=== PATIENT | female | born 1980 | race Caucasian/White ===

== ENCOUNTER 2018-02-14 08:18 | Emergency (ER) | payer OTHER ==
[2018-02-14] MEDS ORDERED: LORazepam 2 MG/ML VIAL ONE (08:34)
[2018-02-14] MEDS ORDERED: NA CHLORIDE 0.9% 1,000 ML ONE (08:34)
[2018-02-14] MEDS ORDERED: cloNIDine HCl 0.1 MG TAB ONE (08:39)
[2018-02-14 09:07] LABS: Absolute Monocytes 0.5 K/uL (0.1-1.3); Absolute Neutrophil 3.2 K/uL (1.8-8.0); Hematocrit 32.6 % (36.0-45.0); Lymphocytes % 20.6 % (15.3-44.8); MCH 26.7 pg (27.0-35.0); MCV 82.9 fL (80-100); MPV 8.4 fL (7.6-11.3); Monocytes % 10.4 % (3.3-12.3); RBC Red Blood Cell Count 3.93 M/uL (3.86-4.86)
[2018-02-14 09:20] LABS: Protime INR 1.05
[2018-02-14 09:41] LABS: Albumin 3.6 g/dL (3.4-5.0); Bilirubin Direct 0.1 mg/dL (0-0.2); Bilirubin Total 0.4 mg/dL (0.2-1.0); Magnesium 1.8 mg/dL (1.8-2.4); Protein, Total 7.2 g/dL (6.4-8.2)
[2018-02-14 09:42] LABS: Potassium 2.6 mmol/L (3.5-5.1)
[2018-02-14] MEDS ORDERED: POTASSIUM CL SA 10 MEQ TAB PO ONE (10:09)
--- NOTE | 2018-02-14 10:30 | EDPHYS ---
Physician Documentation [facility] Name: Shirley Corral Age: 37 yrs Sex: Female : 1980 Arrival Date: 02/14/2018 Time: 08:19 Bed 16 Private MD: ED Physician Kentrell Iyer HPI: 02/14 08:21 This 37 yrs old Female presents to ER via Unassigned with complaints of High kav Blood Pressure. 08:21 The patient has elevated blood pressure and discovered this at home. Onset: The kav symptoms/episode began/occurred acutely, 2 day(s) ago. Modifying factors: The symptoms are aggravated by Non-compliance with f/u with PCP after diagnosis of HTN and Adrenal Mass diagnosed approximately 1 1/2 months ago. Also, reports smoking methamphetamine approximately 2 days ago.. Associated signs and symptoms: Pertinent negatives: chest pain, dizziness, dyspnea, headache, lightheadedness, nausea, visual changes, vomiting, weakness. Severity of symptoms: At its worst the blood pressure was severe, just prior to arrival. The patient has experienced a previous episode, approximately 2 months ago, and the symptoms today are exactly the same. The patient has not recently seen a physician. Non-compliance with physician f/u for HTN and Adrenal mass diagnosed approximately 1 1/2 months ago. Smoke crystal methamphetamine 2 days ago.. 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 - Social history:: Smoking status: Patient uses tobacco products, Patient uses IV drugs. - Ebola Screening: : Patient negative for fever greater than or equal to 101.5 degrees Fahrenheit, and additional compatible Ebola Virus Disease symptoms Patient denies exposure to infectious person Patient denies travel to an Ebola-affected area in the 21 days before illness onset. - Family history:: not pertinent. - Hospitalizations: : No recent hospitalization is reported. - History obtained from: EMS. ROS: 08:28 Constitutional: Negative for fever, chills, and weight loss, Eyes: Negative for injury, kav pain, redness, and discharge, ENT: Negative for injury, pain, and discharge, Neck: Negative for injury, pain, and swelling, Cardiovascular: hypertension 190/115 on arrival Respiratory: Negative for shortness of breath, cough, wheezing, and pleuritic chest pain, Abdomen/GI: Negative for abdominal pain, nausea, vomiting, diarrhea, and constipation, Back: Negative for injury and pain, : Negative for injury, bleeding, discharge, and swelling, MS/Extremity: Negative for injury and deformity, Skin: Negative for injury, rash, and discoloration, Neuro: Negative for headache, weakness, numbness, tingling, and seizure, Allergy/Immunology: Negative for hives, rash, and allergies, Endocrine: Negative for neck swelling, polydipsia, polyuria, polyphagia, and marked weight changes, Hematologic/Lymphatic: Negative for swollen nodes, abnormal bleeding, and unusual bruising. 08:28 Psych: Positive for anxiety. Exam: 08:28 Constitutional: This is a well developed, well nourished patient who is awake, alert, kav and in no acute distress. Head/Face: Normocephalic, atraumatic. Eyes: Pupils equal round and reactive to light, extra-ocular motions intact. Lids and lashes normal. Conjunctiva and sclera are non-icteric and not injected. Cornea within normal limits. Periorbital areas with no swelling, redness, or edema. ENT: Nares patent. No nasal discharge, no septal abnormalities noted. Tympanic membranes are normal and external auditory canals are clear. Oropharynx with no redness, swelling, or masses, exudates, or evidence of obstruction, uvula midline. Mucous membranes moist. Neck: Trachea midline, no thyromegaly or masses palpated, and no cervical lymphadenopathy. Supple, full range of motion without nuchal rigidity, or vertebral point tenderness. No Meningismus. Chest/axilla: Normal chest wall appearance and motion. Nontender with no deformity. No lesions are appreciated. Respiratory: Lungs have equal breath sounds bilaterally, clear to auscultation and percussion. No rales, rhonchi or wheezes noted. No increased work of breathing, no retractions or nasal flaring. Abdomen/GI: Soft, non-tender, with normal bowel sounds. No distension or tympany. No guarding or rebound. No evidence of tenderness throughout. Back: No spinal tenderness. No costovertebral tenderness. Full range of motion. Skin: Warm, dry with normal turgor. Normal color with no rashes, no lesions, and no evidence of cellulitis. MS/ Extremity: Pulses equal, no cyanosis. Neurovascular intact. Full, normal range of motion. Neuro: Awake and alert, GCS 15, oriented to person, place, time, and situation. Cranial nerves II-XII grossly intact. Motor strength 5/5 in all extremities. Sensory grossly intact. Cerebellar exam normal. Normal gait. 08:28 Cardiovascular: Exam negative for acute changes. 08:28 Neuro: Exam negative for acute changes. Vital Signs: 08:23 BP 190 / 115; Pulse 72; Resp 18; Temp 98.1(TE); Pulse Ox 99% ; Weight 56.7 kg; Height 5 hj ft. 5 in. (165.10 cm); Pain 0/10; 09:11 BP 197 / 113; Pulse 65; Resp 18; Pulse Ox 100% on R/A; 09:27 BP 204 / 112; Pulse 66; Resp 18; Pulse Ox 100% on R/A; 09:40 BP 179 / 104; Pulse 68; Resp 18; Pulse Ox 100% on R/A; hj 10:19 BP 159 / 98; Pulse 68; Resp 18; Pulse Ox 99% on R/A; 08:23 Body Mass Index 20.80 (56.70 kg, 165.10 cm) MDM: 08:26 Patient medically screened. [facility] 08:28 Data reviewed: vital signs, nurses notes. 02/14 08:28 Order name: Basic Metabolic Panel; Complete Time: 10:02 02/14 10:02 Interpretation: Normal except: K 2.6; CO2 33; GFR 70. 02/14 08:28 Order name: CBC with Diff; Complete Time: 09:21 02/14 09:21 Interpretation: Normal except: HGB 10.5; HCT 32.6; MCH 26.7; BASO% 2.0. 02/14 08:28 Order name: LFT's; Complete Time: 10:02 02/14 10:02 Interpretation: Normal except: GLOB 3.6; A/G 1.0. 02/14 08:28 Order name: Magnesium; Complete Time: 10:02 02/14 10:02 Interpretation: Within normal limits. 02/14 08:28 Order name: PT-INR; Complete Time: 10:02 02/14 10:02 Interpretation: Within normal limits. 02/14 08:28 Order name: Ptt, Activated; Complete Time: 10:02 02/14 08:28 Order name: Cardiac monitoring; Complete Time: 08:29 02/14 08:28 Order name: EKG - Nurse/Tech; Complete Time: 08:40 02/14 08:28 Order name: IV Saline Lock; Complete Time: 08:47 02/14 08:28 Order name: Labs collected and sent; Complete Time: 08:48 02/14 08:28 Order name: O2 Per Protocol; Complete Time: 08:29 02/14 08:28 Order name: O2 Sat Monitoring; Complete Time: 08:29 Administered Medications: 08:36 Drug: NS 0.9% 1000 ml Route: IV; Rate: 1 bolus; Site: right antecubital; hj 10:51 Follow up: IV Status: Completed infusion hj 08:36 Not Given (not available): hydrALAZINE 10 mg IV at bolus once hj 08:36 Drug: Ativan 1 mg Route: IVP; Site: right antecubital; hj 10:11 Follow up: Response: No adverse reaction hj 08:36 Drug: cloNIDine 0.2 mg Route: PO; hj 10:10 Follow up: Response: No adverse reaction hj 10:04 Drug: Potassium Chloride 40 mEq Route: PO; hj 10:10 Follow up: Response: No adverse reaction hj Disposition: 02/15 06:33 Co-signature as Attending Physician, Kentrell Iyer MD I agree with the assessment and reinier plan of care. Disposition: 02/14/18 10:29 Discharged to Home. Impression: Essential (primary) hypertension, Other stimulant abuse with stimulant-induced anxiety disorder, Adverse effects, not elsewhere classified, Anxiety disorder, unspecified, Dehydration, Hypokalemia. - Condition is Stable. - Discharge Instructions: Stimulant Use Disorder-Amphetamines, Dehydration, Adult, Hypertension, [id number], Stimulant Use Disorder-Methamphetamines, How to Take Your Blood Pressure, [id number], Generalized Anxiety Disorder, Hypokalemia, DASH Eating Plan, Rehydration, Adult. - Prescriptions for Lisinopril 10 mg Oral Tablet - take 1 tablet by ORAL route once daily; 20 tablet. - Medication Reconciliation Form, Thank You Letter, Antibiotic Education, Prescription Opioid Use form. - Follow up: [facility]; When: 5 - 6 days; Reason: Recheck today's complaints, Continuance of care. - Problem is new. - Symptoms have improved. - Notes: ensure adequate hydration avoid use of methamphetamines follow - up with pcp for hypertension and adrenal mass Signatures: Dispatcher [employer] EDCT Kentrell Iyer MD MD cha Vern, Katherine, SPECIALTY DEVELOPMENT CONSULTANT SPECIALTY DEVELOPMENT CONSULTANT Marvin Castrejon RN RN hj Corrections: (The following items were deleted from the chart) 02/14 10:56 10:29 02/14/2018 10:29 Discharged to Home. Impression: Essential (primary) hj hypertension; Other stimulant abuse with stimulant-induced anxiety disorder; Adverse effects, not elsewhere classified; Anxiety disorder, unspecified; Dehydration; Hypokalemia. Condition is Stable. Discharge Instructions: Stimulant Use Disorder-Amphetamines, Hypertension, Oeiy-fw-Oiuc, Stimulant Use Disorder-Methamphetamines, How to Take Your Blood Pressure, [id number]-[id number], Generalized Anxiety Disorder, DASH Eating Plan, Dehydration, Adult, Rehydration, Adult, Hypokalemia. Forms are Medication Reconciliation Form, Thank You Letter, Antibiotic Education, Prescription Opioid Use. Follow up: [facility]; When: 5 - 6 days; Reason: Recheck today's complaints, Continuance of care. Problem is new. Symptoms have improved. kav
--- NOTE | 2018-02-14 10:30 | ER ---
Nurse's Notes [facility] Name: Shirley Corral Age: 37 yrs Sex: Female : 1980 Arrival Date: 02/14/2018 Time: 08:19 Bed 16 Private MD: Diagnosis: Essential (primary) hypertension;Other stimulant abuse with stimulant-induced anxiety disorder;Adverse effects, not elsewhere classified;Anxiety disorder, unspecified;Dehydration;Hypokalemia Presentation: 02/14 08:19 Presenting complaint: EMS states: was called for pt complaining of high blood pressure hj and blurry vision, SBP RA- 180; SBP LA- 160/114; BP- 203/114, HR- 86; temp- 97.6; BGL- 80; recently dx witrh adrenal tumor;. Transition of care: patient was received from another setting of care (rehabilitation facility). Onset of symptoms was February 14, 2018. Risk Assessment: Do you want to hurt yourself or someone else? Patient reports no desire to harm self or others. Initial Sepsis Screen: Does the patient meet any 2 criteria? No. Patient's initial sepsis screen is negative. Does the patient have a suspected source of infection? No. Patient's initial sepsis screen is negative. Care prior to arrival: None. 08:19 Method Of Arrival: EMS: [facility] 08:19 Acuity: AUDRA 3 hj Triage Assessment: 08:23 General: Appears in no apparent distress. uncomfortable, slender, Behavior is calm, hj cooperative, appropriate for age. Pain: Denies pain. 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 - Social history:: Smoking status: Patient uses tobacco products, Patient uses IV drugs. - Ebola Screening: : Patient negative for fever greater than or equal to 101.5 degrees Fahrenheit, and additional compatible Ebola Virus Disease symptoms Patient denies exposure to infectious person Patient denies travel to an Ebola-affected area in the 21 days before illness onset. - Family history:: not pertinent. - Hospitalizations: : No recent hospitalization is reported. - History obtained from: EMS. Screenin:23 Abuse screen: Denies threats or abuse. Denies injuries from another. Nutritional hj screening: No deficits noted. Tuberculosis screening: No symptoms or risk factors identified. Fall Risk None identified. Assessment: 08:22 General: Appears in no apparent distress. uncomfortable, Behavior is calm, cooperative, hj appropriate for age. Pain: Denies pain. Neuro: Level of Consciousness is awake, alert, obeys commands, Oriented to person, place, time, situation, Appropriate for age. Cardiovascular: Capillary refill < 3 seconds Patient's skin is warm and dry. Respiratory: Airway is patent Respiratory effort is even, unlabored, Respiratory pattern is regular, symmetrical. GI: No signs and/or symptoms were reported involving the gastrointestinal system. : No signs and/or symptoms were reported regarding the genitourinary system. EENT: Reports blurred vision. Derm: No signs and/or symptoms reported regarding the dermatologic system. Musculoskeletal: No signs and/or symptoms reported regarding the musculoskeletal system. 09:42 Reassessment: lab alert- K- 2.6, provider informed;. hj Vital Signs: 08:23 BP 190 / 115; Pulse 72; Resp 18; Temp 98.1(TE); Pulse Ox 99% ; Weight 56.7 kg; Height 5 hj ft. 5 in. (165.10 cm); Pain 0/10; 09:11 BP 197 / 113; Pulse 65; Resp 18; Pulse Ox 100% on R/A; hj 09:27 BP 204 / 112; Pulse 66; Resp 18; Pulse Ox 100% on R/A; hj 09:40 BP 179 / 104; Pulse 68; Resp 18; Pulse Ox 100% on R/A; hj 10:19 BP 159 / 98; Pulse 68; Resp 18; Pulse Ox 99% on R/A; hj 08:23 Body Mass Index 20.80 (56.70 kg, 165.10 cm) hj ED Course: 08:19 Patient arrived in ED. hj 08:21 [facility] Armendariz FNP [facility] kav 08:21 Kentrell Iyer MD is Attending Physician. kav 08:21 Triage completed. hj 08:24 Arm band placed on left wrist. hj 08:24 Patient has correct armband on for positive identification. Placed in gown. Bed in low hj position. Call light in reach. Side rails up X 1. 08:26 Marvin Li, RN is Primary Nurse. hj 08:50 EKG done, by director of instructional technology. reviewed by Joselyn ORDOÑEZ. at1 08:55 Initial lab(s) drawn, by nj, sent to lab. Inserted saline lock: 22 gauge in right mh5 antecubital area, using aseptic technique. Blood collected. 08:56 IV discontinued, Pressure dressing applied. mh5 08:57 Basic Metabolic Panel Sent. mh5 08:57 CBC with Diff Sent. mh5 08:57 LFT's Sent. mh5 08:57 Magnesium Sent. mh5 08:57 PT-INR Sent. mh5 08:57 Ptt, Activated Sent. mh5 09:02 Inserted saline lock: 22 gauge in left antecubital area, using aseptic technique. hj 10:28 Wellington Taylor MD is Referral Physician. kav 10:49 No provider procedures requiring assistance completed. hj 10:51 IV discontinued, Pressure dressing applied. hj Administered Medications: 08:36 Drug: NS 0.9% 1000 ml Route: IV; Rate: 1 bolus; Site: right antecubital; hj 10:51 Follow up: IV Status: Completed infusion hj 08:36 Not Given (not available): hydrALAZINE 10 mg IV at bolus once hj 08:36 Drug: Ativan 1 mg Route: IVP; Site: right antecubital; hj 10:11 Follow up: Response: No adverse reaction hj 08:36 Drug: cloNIDine 0.2 mg Route: PO; hj 10:10 Follow up: Response: No adverse reaction hj 10:04 Drug: Potassium Chloride 40 mEq Route: PO; hj 10:10 Follow up: Response: No adverse reaction hj Outcome: 10:29 Discharge ordered by . kav 10:49 Discharged to home via [facility]; hj 10:49 Condition: stable 10:49 Discharge instructions given to patient, Instructed on discharge instructions, follow up and referral plans. medication usage, Demonstrated understanding of instructions, follow-up care, medications, Prescriptions given X 1. 10:56 Patient left the ED. hj Signatures: Joselyn Armendariz FNP FNP kaEvita fairchild, sap integration architect EKG Tat1 Marvin Li RN RN Ashley Paredes mh5 Corrections: (The following items were deleted from the chart) 08:26 08:19 Presenting complaint: EMS states: was called for pt complaining of high blood hj pressure and blurry vision, SBP RA- 180; SBP LA- 160/114; BP- 203/114, HR- 86; temp- 97.6; hj
--- NOTE | 2018-02-14 16:54 | EKG ---
Test Date: 2018-02-14 Test Time: 08:39:56 Knotter Hand: ZEYNEP MEASUREMENT RESULTS: Intervals: Rate: 73 CA: 132 QRSD: 86 QT: 444 QTc: [address] [place]: P: 48 CA: 132 QRS: 41 T: -46 INTERPRETIVE STATEMENTS: Normal sinus rhythm ST & T wave abnormality, consider lateral ischemia Prolonged QT Abnormal ECG No previous ECG available for comparison Electronically Signed On 02-14-18 16:53:30 CDT by Gio Gant
== END 2018-02-14 10:56 | disposition home or self-care (01) ==
LOC: ER 08:18
DX: I10 Essential (primary) hypertension (principal); F15.180 Other stimulant abuse with stimulant-induced anxiety disorder; F41.9 Anxiety disorder, unspecified; E86.0 Dehydration; E87.6 Hypokalemia; F17.200 Nicotine dependence, unspecified, uncomplicated; T78.8XXA Other adverse effects, not elsewhere classified, initial encounter
CPT/HCPCS: 36415; 80048; 80076; 83735; 85025; 85610; 85730; 93005; 96361; 96374; 99284; J7030

== ENCOUNTER 2018-02-16 19:57 | Emergency (ER) | payer OTHER ==
[2018-02-16 21:03] LABS: Absolute Lymphocytes (CBC) 1.2 K/uL (0.7-4.9); Absolute Monocytes 0.5 K/uL (0.1-1.3); Absolute Neutrophil 4.2 K/uL (1.8-8.0); Basophils % 1.9 % (0-1.3); Eosinophils % 1.1 % (0-4.4); Hematocrit 29.8 % (36.0-45.0); Lymphocytes % 19.1 % (15.3-44.8); MCH 27.6 pg (27.0-35.0); MCV 82.1 fL (80-100); MPV 8.4 fL (7.6-11.3); Monocytes % 8.3 % (3.3-12.3); RBC Red Blood Cell Count 3.63 M/uL (3.86-4.86)
[2018-02-16 21:23] LABS: Urine Blood 2+ (NEG); Urine Glucose TRACE (NEG); Urine Protein 1+ (NEG); Urine Specific Gravity 1.015 (1.005-1.030)
[2018-02-16 21:35] LABS: ALT/SGPT 18 U/L (12-78); AST/SGOT 22 U/L (15-37); Albumin 3.6 g/dL (3.4-5.0); Alkaline Phosphatase 66 U/L (45-117); BUN Blood Urea Nitrogen 16 mg/dL (7-18); Bicarbonate 32 mmol/L (21-32); Bilirubin Direct < 0.1 mg/dL (0-0.2); Bilirubin Total 0.2 mg/dL (0.2-1.0); Glucose Level 82 mg/dL (74-106); Magnesium 1.6 mg/dL (1.8-2.4); Protein, Total 7.3 g/dL (6.4-8.2); Sodium Level 141 mmol/L (136-145)
[2018-02-16 21:40] LABS: Potassium 2.4 mmol/L (3.5-5.1)
[2018-02-16] MEDS ORDERED: Magnesium Sulfate 2gm IVPB 2 G/50 ML BAG IV ONE (22:10)
[2018-02-16] MEDS ORDERED: POTASSIUM 25 MEQ EFFERV TAB ONE (22:10)
--- NOTE | 2018-02-16 23:24 | ER ---
Nurse's Notes [facility] Name: Shirley Corral Age: 37 yrs Sex: Female : 1980 Arrival Date: 02/16/2018 Time: 20:03 Bed 15 Private MD: Diagnosis: Elevated Blood Pressure;Hypokalemia Presentation: 02/16 19:55 Presenting complaint: Patient states: that she was here on the 26 for hypertension and fc given Lisinopril which she just started today. Her bp continued to just climb higher today. EMS bp 195/125 with heart rate of 88 and sats of 100%. Transition of care: lives at [facility]. Onset of symptoms was February 16, 2018. Risk Assessment: Do you want to hurt yourself or someone else? Patient reports no desire to harm self or others. Initial Sepsis Screen: Does the patient meet any 2 criteria? No. Patient's initial sepsis screen is negative. Does the patient have a suspected source of infection? No. Patient's initial sepsis screen is negative. Care prior to arrival: None. 19:55 Method Of Arrival: EMS: [facility] 19:55 Acuity: AUDRA 3 Triage Assessment: 20:00 General: Appears comfortable, slender, Behavior is calm, cooperative, appropriate for fc age. 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 - Social history:: Smoking status: Patient uses tobacco products, smokes one-half pack cigarettes per day, Patient uses street drugs, Methamphetamine (Meth) stopped last . - Ebola Screening: : Patient negative for fever greater than or equal to 101.5 degrees Fahrenheit, and additional compatible Ebola Virus Disease symptoms Patient denies exposure to infectious person Patient denies travel to an Ebola-affected area in the 21 days before illness onset. - Family history:: not pertinent. - Hospitalizations: : No recent hospitalization is reported. Screenin:08 Abuse screen: Denies threats or abuse. Nutritional screening: No deficits noted. fc Tuberculosis screening: No symptoms or risk factors identified. Fall Risk None identified. Assessment: 20:07 General: RECD 37YO WF VIA EMS FROM REHAB FACILITY FOR ASYMPTOMATIC HTN. PT STARTED bp ANTI-HYPERTENSIVE MEDICINE, LISINOPRIL 10MG, TODAY. Pain: Denies pain. Cardiovascular: Rhythm is sinus rhythm. 21:01 Reassessment: LABWORK IN PROCESS, PT REMAINS HYPERTENSIVE ON ACTIVE DIRECTORY SYSTEMS ADMINISTRATOR. bp 22:16 Reassessment: MAG SULFATE INFUSING. PT RESTING QUIETLY, REMAINS ASYMPTOMATIC. bp 23:25 Reassessment: No changes from previously documented assessment. Patient and/or family fc updated on plan of care and expected duration. Pain level reassessed. Patient is alert, oriented x 3, equal unlabored respirations, skin warm/dry/pink. Pt is not having any problems or discomfort. She is ready to be discharged. Vital Signs: 19:55 BP 204 / 116; Pulse 74; Resp 18; Temp 98.0(O); Pulse Ox 100% ; Weight 56.7 kg (R); fc Height 5 ft. 5 in. (165.10 cm); Pain 0/10; 20:50 BP 191 / 118; Pulse 74; Resp 16; Pulse Ox 100% ; bp 22:04 BP 178 / 111; Pulse 67; Resp 16; Pulse Ox 100% ; bp 23:32 BP 185 / 102; Pulse 72; Resp 18; Temp 98.2(O); Pulse Ox 100% on R/A; Pain 0/10; fc 19:55 Body Mass Index 20.80 (56.70 kg, 165.10 cm) ED Course: 19:55 Arm band placed on Patient placed in an exam room, on a stretcher. fc 20:03 Patient arrived in ED. fc 20:03 Brijesh Burnham, RN is Primary Nurse. bp 20:06 Triage completed. fc 20:08 Patient has correct armband on for positive identification. Bed in low position. Call fc light in reach. 20:08 No provider procedures requiring assistance completed. fc 20:11 Lloyd Soria MD is Attending Physician. wa 21:00 Inserted saline lock: 22 gauge in right forearm, using aseptic technique. Blood bp collected. 23:22 Carol Ann Godfrey MD is Referral Physician. wa 23:34 IV discontinued, intact, bleeding controlled, No redness/swelling at site. Pressure fc dressing applied, per Brijesh Rn. Administered Medications: 22:13 Drug: Magnesium Sulfate 2 grams Route: IVPB; Infused Over: 2 hrs; Site: right forearm; bp 23:30 Follow up: Response: No adverse reaction; No change in condition; IV Status: Completed fc infusion 22:13 Drug: Potassium Effervescent Tablet 50 mEq Route: PO; bp 22:17 Follow up: Response: No adverse reaction bp 23:35 Follow up: Response: No adverse reaction; No change in condition fc Outcome: 23:23 Discharge ordered by . deshawn 23:33 Discharged to home ambulatory. 23:33 Condition: good 23:33 Discharge instructions given to patient, Instructed on discharge instructions, follow up and referral plans. medication usage, Demonstrated understanding of instructions, follow-up care, medications, Prescriptions given X 3. 23:35 Patient left the ED. fc Signatures: Randee Woodard RN RN fc Lloyd Soria MD MD wa Peltier, Brian, RN RN bp Corrections: (The following items were deleted from the chart) 20:07 19:55 Transition of care: patient was not received from another setting of care. fc fc
--- NOTE | 2018-02-16 23:24 | EDPHYS ---
Physician Documentation [facility] Name: Shirley Corral Age: 37 yrs Sex: Female : 1980 Arrival Date: 02/16/2018 Time: 20:03 Bed 15 Private MD: ED Physician Lloyd Soria HPI: 02/16 21:52 This 37 yrs old Female presents to ER via EMS with complaints of hypertension.wa 21:52 c/o elevated BP. took first dose of lisinopril today but states BP actually went u wa instead of down. In rehab for meth addiction. facility advised her to come seek care. Denies any complaints. specifically, answers negative to MARTINEZ, dizziness, SOB, CP, blood in UA. states recently dx'd with adrenal tumor and told may have to do with BP elevation. also has low K. . Onset: The symptoms/episode began/occurred today. Severity of symptoms: At their worst the symptoms were moderate in the emergency department the symptoms are unchanged Pain is currently a 0 / 10. The patient has experienced similar episodes in the past, several times. The patient has not recently seen a physician. as noted above. 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 - Social history:: Smoking status: Patient uses tobacco products, smokes one-half pack cigarettes per day, Patient uses street drugs, Methamphetamine (Meth) stopped last . - Ebola Screening: : Patient negative for fever greater than or equal to 101.5 degrees Fahrenheit, and additional compatible Ebola Virus Disease symptoms Patient denies exposure to infectious person Patient denies travel to an Ebola-affected area in the 21 days before illness onset. - Family history:: not pertinent. - Hospitalizations: : No recent hospitalization is reported. ROS: 21:55 Constitutional: Negative for fever, chills, and weight loss, Eyes: Negative for injury, wa pain, redness, and discharge, ENT: Negative for injury, pain, and discharge, Neck: Negative for injury, pain, and swelling, Cardiovascular: Negative for chest pain, palpitations, and edema, Respiratory: Negative for shortness of breath, cough, wheezing, and pleuritic chest pain, Abdomen/GI: Negative for abdominal pain, nausea, vomiting, diarrhea, and constipation, Back: Negative for injury and pain, : Negative for injury, bleeding, discharge, and swelling, MS/Extremity: Negative for injury and deformity, Skin: Negative for injury, rash, and discoloration, Neuro: Negative for headache, weakness, numbness, tingling, and seizure, Psych: Negative for depression, anxiety, suicide ideation, homicidal ideation, and hallucinations. 21:55 All other systems are negative. Exam: 21:56 Constitutional: This is a well developed, well nourished patient who is awake, alert, wa and in no acute distress. Head/Face: Normocephalic, atraumatic. Eyes: Pupils equal round and reactive to light, extra-ocular motions intact. Lids and lashes normal. Conjunctiva and sclera are non-icteric and not injected. Cornea within normal limits. Periorbital areas with no swelling, redness, or edema. ENT: Nares patent. No nasal discharge, no septal abnormalities noted. Tympanic membranes are normal and external auditory canals are clear. Oropharynx with no redness, swelling, or masses, exudates, or evidence of obstruction, uvula midline. Mucous membranes moist. Neck: Trachea midline, no thyromegaly or masses palpated, and no cervical lymphadenopathy. Supple, full range of motion without nuchal rigidity, or vertebral point tenderness. No Meningismus. Chest/axilla: Normal chest wall appearance and motion. Nontender with no deformity. No lesions are appreciated. Cardiovascular: Regular rate and rhythm with a normal S1 and S2. No gallops, murmurs, or rubs. Normal PMI, no JVD. No pulse deficits. Respiratory: Lungs have equal breath sounds bilaterally, clear to auscultation and percussion. No rales, rhonchi or wheezes noted. No increased work of breathing, no retractions or nasal flaring. Abdomen/GI: Soft, non-tender, with normal bowel sounds. No distension or tympany. No guarding or rebound. No evidence of tenderness throughout. Back: No spinal tenderness. No costovertebral tenderness. Full range of motion. Skin: Warm, dry with normal turgor. Normal color with no rashes, no lesions, and no evidence of cellulitis. MS/ Extremity: Pulses equal, no cyanosis. Neurovascular intact. Full, normal range of motion. Neuro: Awake and alert, GCS 15, oriented to person, place, time, and situation. Cranial nerves II-XII grossly intact. Motor strength 5/5 in all extremities. Sensory grossly intact. Cerebellar exam normal. Normal gait. Psych: Awake, alert, with orientation to person, place and time. Behavior, mood, and affect are within normal limits. Vital Signs: 19:55 BP 204 / 116; Pulse 74; Resp 18; Temp 98.0(O); Pulse Ox 100% ; Weight 56.7 kg (R); fc Height 5 ft. 5 in. (165.10 cm); Pain 0/10; 20:50 BP 191 / 118; Pulse 74; Resp 16; Pulse Ox 100% ; bp 22:04 BP 178 / 111; Pulse 67; Resp 16; Pulse Ox 100% ; bp 23:32 BP 185 / 102; Pulse 72; Resp 18; Temp 98.2(O); Pulse Ox 100% on R/A; Pain 0/10; fc 19:55 Body Mass Index 20.80 (56.70 kg, 165.10 cm) MDM: 20:11 Patient medically screened. pa 21:56 Differential Diagnosis adrenal tumor. possible related to HTN. will check labs to eval wa K. will not treat BP aggressively at this time. may add another BP med for support. may need to be on KCL. . Data reviewed: vital signs, nurses notes, lab test result(s). Test interpretation: by ED physician or midlevel provider: labs noted for low K at 2.4. also hypomagnesemia. 02/16 20:37 Order name: Magnesium; Complete Time: 21:50 pa 02/16 20:37 Order name: Basic Metabolic Panel; Complete Time: 21:50 pa 02/16 20:37 Order name: CBC with Diff; Complete Time: 21:51 pa 02/16 20:37 Order name: LFT's; Complete Time: 21:51 pa 02/16 21:02 Order name: Urine Dipstick--Ancillary (enter results); Complete Time: 21:50 02/16 21:02 Order name: Urine --Ancillary (enter results); Complete Time: 21:50 02/16 20:37 Order name: Urine Test (obtain specimen); Complete Time: 21:12 pa 02/16 20:37 Order name: IV Saline Lock; Complete Time: 21:12 pa 02/16 20:37 Order name: Labs collected and sent; Complete Time: 21:12 pa 02/16 20:37 Order name: Urine Dipstick-Ancillary (obtain specimen); Complete Time: 21:13 pa Administered Medications: 22:13 Drug: Magnesium Sulfate 2 grams Route: IVPB; Infused Over: 2 hrs; Site: right forearm; bp 23:30 Follow up: Response: No adverse reaction; No change in condition; IV Status: Completed fc infusion 22:13 Drug: Potassium Effervescent Tablet 50 mEq Route: PO; bp 22:17 Follow up: Response: No adverse reaction bp 23:35 Follow up: Response: No adverse reaction; No change in condition fc Disposition: 02/16/18 23:23 Discharged to Home. Impression: Elevated Blood Pressure, Hypokalemia. - Condition is Stable. - Discharge Instructions: Hypertension. - Prescriptions for amlodipine 10 mg Oral tablet - take 1 tablet by ORAL route once daily; 90 tablet. Lisinopril 10 mg Oral Tablet - take 1 tablet by ORAL route once daily; 90 tablet. Potassium Chloride 20 meq Oral Packet - take 1 packet by ORAL route once daily 1 packet in 6 (six) ounces of water or juice; Take after meal; 30 packet. - Medication Reconciliation Form, Thank You Letter, Antibiotic Education, Prescription Opioid Use form. - Follow up: Carol Ann Godfrey MD; When: 2 - 3 days; Reason: Recheck today's complaints. - Problem is new. - Symptoms have improved. - Notes: take your blood pressure medicines as prescribed. take the potassium as prescribed. follow up with your doctors for the adrenal gland tumor as it may be related to your blood pressure and low potassium Signatures: Dispatcher [employer] EDMS Randee Woodard RN RN fc Lloyd Soria MD MD wa Peltier, Brian, RN RN bp Corrections: (The following items were deleted from the chart) 23:35 23:23 02/16/2018 23:23 Discharged to Home. Impression: Elevated Blood Pressure; fc Hypokalemia. Condition is Stable. Forms are Medication Reconciliation Form, Thank You Letter, Antibiotic Education, Prescription Opioid Use. Follow up: A Epifanio; When: 2 - 3 days; Reason: Recheck today's complaints. Problem is new. Symptoms have improved. deshawn
== END 2018-02-16 23:35 | disposition home or self-care (01) ==
LOC: ER 19:57
DX: I10 Essential (primary) hypertension (principal); E87.6 Hypokalemia; F17.210 Nicotine dependence, cigarettes, uncomplicated
CPT/HCPCS: 36415; 80048; 80076; 81003; 81025; 83735; 85025; 96365; 99284; J3475

== ENCOUNTER 2018-02-17 15:09 | Emergency (ER) | payer OTHER ==
--- NOTE | 2018-02-17 16:30 | ER ---
Nurse's Notes [facility] Name: Shirley Corral Age: 37 yrs Sex: Female : 1980 Arrival Date: 02/17/2018 Time: 15:11 Bed 15 Private MD: Out, [facility] Diagnosis: Contusion of right foot;Sprain of ankle Presentation: 02/17 15:13 Presenting complaint: Patient states: "I hurt my foot on Monday. I stepped flat down aj1 and I heard a pop, and since then the pain is worse and its getting all purple and blue and it feels tingly and numb. Transition of care: patient was not received from another setting of care. Onset of symptoms was February 14, 2018. Risk Assessment: Do you want to hurt yourself or someone else? Patient reports no desire to harm self or others. Initial Sepsis Screen: Does the patient meet any 2 criteria? No. Patient's initial sepsis screen is negative. Does the patient have a suspected source of infection? No. Patient's initial sepsis screen is negative. Care prior to arrival: None. 15:13 Method Of Arrival: Ambulatory [facility] 15:13 Acuity: AUDRA 4 aj1 Triage Assessment: 15:17 General: Appears in no apparent distress. uncomfortable, Behavior is calm, cooperative, aj1 appropriate for age. Pain: Pain currently is 4 out of 10 on a pain scale. Musculoskeletal: Range of motion: limited in right ankle. 15:22 Injury Description: Bruise sustained to dorsum of right foot and lateral aspect of rb1 right foot is purple, was sustained on Monday. 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 - Social history:: Smoking status: Patient uses tobacco products, smokes one pack cigarettes per day. - Ebola Screening: : Patient denies travel to an Ebola-affected area in the 21 days before illness onset. Screenin:22 Abuse screen: Denies threats or abuse. Nutritional screening: No deficits noted. rb1 Tuberculosis screening: No symptoms or risk factors identified. Fall Risk None identified. Assessment: 15:22 General: Appears uncomfortable, Behavior is calm, cooperative. Pain: Complains of pain rb1 in lateral aspect of right foot and dorsum of right foot Pain currently is 4 out of 10 on a pain scale. Pain began Monday. Neuro: Level of Consciousness is awake, alert, obeys commands, Oriented to person, place, time, situation. Cardiovascular: Capillary refill < 3 seconds is brisk in bilateral fingers. Cardiovascular: Pulses are palpable in right dorsalis pedis artery. Respiratory: Airway is patent Respiratory effort is even, unlabored, Respiratory pattern is regular, symmetrical. GI: No signs and/or symptoms were reported involving the gastrointestinal system. : No signs and/or symptoms were reported regarding the genitourinary system. 16:20 Reassessment: Patient appears in no apparent distress at this time. No changes from rb1 previously documented assessment. Vital Signs: 15:17 BP 186 / 110; Pulse 82; Resp 18; Temp 97.4; Pulse Ox 98% on R/A; Weight 56.7 kg; Height aj1 5 ft. 5 in. (165.10 cm); Pain 4/10; 16:20 BP 176 / 105; Pulse 79; Resp 19; Pulse Ox 99% on R/A; rb1 15:17 Body Mass Index 20.80 (56.70 kg, 165.10 cm) aj1 16:20 pt. stated, "My blood pressure stays high because of the adrenal tumor." rb1 ED Course: 15:11 Patient arrived in ED. sb2 15:12 Out, [facility] is Private Physician. sb2 15:16 Triage completed. aj1 15:17 Arm band placed on Patient placed in an exam room. aj1 15:20 Whit Humphreys, RN is Primary Nurse. rb1 15:22 Claudette Villaseñor NP is PHCP. rh1 15:22 Patient has correct armband on for positive identification. Bed in low position. Call rb1 light in reach. Side rails up X 1. Pulse ox on. NIBP on. 15:23 Alli Agarwal MD is Attending Physician. rh1 15:52 Ankle Right 3 View XRAY In Process Unspecified. EDMS 15:52 Foot Right 3 View XRAY In Process Unspecified. EDMS 16:10 Urine collected: clean catch specimen, clear, amanda colored. jp3 16:30 Ovidio Carrera MD is Referral Physician. rh1 16:50 No provider procedures requiring assistance completed. Patient did not have IV access rb1 during this emergency room visit. Administered Medications: No medications were administered Outcome: 16:30 Discharge ordered by MD. rh1 16:50 Patient left the ED. rb1 16:50 Discharged to home ambulatory. rb1 16:50 Condition: stable 16:50 Discharge instructions given to patient, Instructed on discharge instructions, follow up and referral plans. Demonstrated understanding of instructions, follow-up care, Prescriptions given X none Signatures: Dispatcher [employer] EDMS Karen Corral RN RN aj1 Claudette Villaseñor NP STAFF RESEARCH ASSOCIATE rh1 Whit Humphreys RN RN rb1 Keyla Arriaza 2 Bharathi Bonilla jp3 Corrections: (The following items were deleted from the chart) 17:00 16:20 BP 176 / 105; Pulse 79bpm; Resp 19bpm; Pulse Ox 99% RA; rb1 rb1 17:02 17:00 Patient left the ED. rb1 rb1
--- NOTE | 2018-02-17 16:31 | EDPHYS ---
Physician Documentation [facility] Name: Shirley Corral Age: 37 yrs Sex: Female : 1980 Arrival Date: 02/17/2018 Time: 15:11 Bed 15 Private MD: Out, [facility] ED Physician Alli Agarwal HPI: 02/17 15:26 This 37 yrs old Female presents to ER via Ambulatory with complaints of Foot rh1 Injury. 15:26 The patient presents with pain, that is acute. The complaints affect the right ankle, rh1 lateral aspect of right foot and dorsum of right foot. Context: The problem was sustained at home, resulted from a mis-step, the patient can fully bear weight, the patient is able to ambulate, with mild difficulty. Onset: The symptoms/episode began/occurred 3 day(s) ago. Modifying factors: The symptoms are alleviated by nothing. the symptoms are aggravated by movement, weight bearing. Associated signs and symptoms:. Associated signs and symptoms: Pertinent positives: swelling, Pertinent negatives weakness. Treatment prior to arrival includes: over the counter medications, NSAIDS, Tylenol. Severity of symptoms: At their worst the symptoms were moderate, in the emergency department the symptoms are unchanged. The patient has not experienced similar symptoms in the past. The patient has been recently seen by a physician: The patient has been recently seen at the [facility] Emergency Department, yesterday, for unrelated complaints. Pt. reports she stepped off the bed wrong and heard at pop at the right foot. Pain, swelling, bruising at lateral aspect of right ankle and foot. Denies any need for pain medication at this time.. 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 - Social history:: Smoking status: Patient uses tobacco products, smokes one pack cigarettes per day. - Ebola Screening: : Patient denies travel to an Ebola-affected area in the 21 days before illness onset. ROS: 15:26 Constitutional: Negative for fever rh1 15:26 Abdomen/GI: Negative for nausea and vomiting. 15:26 MS/extremity: Positive for contusion, decreased range of motion, pain, swelling, tenderness, Negative for deformity, paresthesias. 15:26 Skin: Positive for ecchymosis, Negative for 15:26 All other systems are negative. Exam: 15:26 Constitutional: This is a well developed, well nourished patient who is awake, alert, rh1 and in no acute distress. Head/Face: Normocephalic, atraumatic. Neck: Trachea midline, and no cervical lymphadenopathy. Supple, full range of motion without nuchal rigidity. No Meningismus. Cardiovascular: Regular rate and rhythm with a normal S1 and S2. No gallops, murmurs, or rubs. No JVD. No pulse deficits. Respiratory: Lungs have equal breath sounds bilaterally, clear to auscultation. No rales, rhonchi or wheezes noted. No increased work of breathing. Abdomen/GI: Soft, non-tender, with normal bowel sounds. No distension. No guarding or rebound. No evidence of tenderness throughout. Skin: Warm, dry with normal turgor. Normal color with no rashes, no lesions, and no evidence of cellulitis. 15:26 Musculoskeletal/extremity: Extremities: grossly normal except: noted in the dorsum of right foot and lateral aspect of right foot and right ankle: contusion, decreased ROM, pain, swelling, tenderness, There is no evidence of deformity, ROM: limited active range of motion, in the right ankle, limited active range of motion due to pain, in the dorsum of right foot and lateral aspect of right foot and right ankle, limited passive range of motion due to pain, in the lateral aspect of right foot and right ankle, Pulses: noted to be 2+ in the right posterior tibial artery, right dorsalis pedis artery, left posterior tibial artery and left dorsalis pedis artery, Perfusion: the extremity is pink, warm, with brisk capillary refill, Sensation intact. 15:26 Neuro: Orientation: is normal, to person, place \\T\\ time. Mentation: is normal, lucid, able to follow commands, Motor: is normal, moves all fours, Sensation: is normal, no obvious gross deficits, numbness, is not appreciated, tingling, is not appreciated, Gait: is steady, with increased pain at right foot. Vital Signs: 15:17 BP 186 / 110; Pulse 82; Resp 18; Temp 97.4; Pulse Ox 98% on R/A; Weight 56.7 kg; Height aj1 5 ft. 5 in. (165.10 cm); Pain 4/10; 16:20 BP 176 / 105; Pulse 79; Resp 19; Pulse Ox 99% on R/A; rb1 15:17 Body Mass Index 20.80 (56.70 kg, 165.10 cm) aj1 16:20 pt. stated, "My blood pressure stays high because of the adrenal tumor." rb1 MDM: 15:26 Patient medically screened. rh1 16:29 Data reviewed: vital signs, nurses notes, radiologic studies, plain films, and as a rh1 result, I will discharge patient. Data interpreted: Pulse oximetry: on room air is 98 %. Interpretation: normal. Counseling: I had a detailed discussion with the patient and/or guardian regarding: the historical points, exam findings, and any diagnostic results supporting the discharge/admit diagnosis, lab results, radiology results, the need for outpatient follow up, a orthopedic surgeon. 02/17 16:45 Order name: Urine Dipstick--Ancillary (enter results) em1 02/17 16:45 Order name: Urine --Ancillary (enter results) em1 02/17 15:31 Order name: Ankle Right 3 View XRAY; Complete Time: 16:36 rh1 02/17 15:31 Order name: Urine Dipstick-Ancillary (obtain specimen); Complete Time: 16:25 rh1 02/17 15:31 Order name: Urine Test (obtain specimen); Complete Time: 16:25 rh1 02/17 15:31 Order name: Foot Right 3 View XRAY; Complete Time: 16:36 rh1 02/17 16:51 Order name: Post-op shoe; Complete Time: 16:59 rh1 Administered Medications: No medications were administered Disposition: 17:32 Co-signature as Attending Physician, Alli Agarwal MD. rn Disposition: 02/17/18 16:30 Discharged to Home. Impression: Contusion of right foot, Sprain of ankle. - Condition is Stable. - Discharge Instructions: Elastic Bandage and RICE, Ankle Sprain, Foot Contusion. - Medication Reconciliation Form, Thank You Letter, Antibiotic Education, Prescription Opioid Use form. - Follow up: Private Physician; When: 1 - 2 days; Reason: Recheck today's complaints, Continuance of care, Re-evaluation by your physician. Follow up: Ovidio Carrera MD; When: 1 - 2 days; Reason: Further diagnostic work-up, Recheck today's complaints, Continuance of care. Follow up: Emergency Department; When: As needed; Reason: Fever > 102 F, If symptoms return, Trouble breathing, Worsening of condition. - Problem is new. - Symptoms are unchanged. Signatures: Dispatcher [employer] EDKaren Herring, RN RN aj1 Alli Agarwal MD MD rn Claudette Villaseñor, CARDIOGRAPH OPERATOR CARDIOGRAPH OPERATOR rh1 Whit Humphreys RN RN rb1 Corrections: (The following items were deleted from the chart) 16:31 15:26 Pt. reports she stepped off the bed wrong and heard at pop at the right foot. rh1 Pain, swelling, bruising at lateral aspect of right ankle and foot.. rh1 16:31 16:30 02/17/2018 16:30 Discharged to Home. Impression: Contusion of right foot; Other rh1 sprain of right foot. Condition is Stable. Forms are Medication Reconciliation Form, Thank You Letter, Antibiotic Education, Prescription Opioid Use. Follow up: Private Physician; When: 1 - 2 days; Reason: Recheck today's complaints, Continuance of care, Re-evaluation by your physician. Follow up: Ovidio Carrera; When: 1 - 2 days; Reason: Further diagnostic work-up, Recheck today's complaints, Continuance of care. Follow up: Emergency Department; When: As needed; Reason: Fever > 102 F, If symptoms return, Trouble breathing, Worsening of condition. Problem is new. Symptoms are unchanged. rh1 16:51 16:19 Splint - Ankle: Aircast ordered. rh1 rh1 17:00 16:31 02/17/2018 16:30 Discharged to Home. Impression: Contusion of right foot; Sprain rb1 of ankle. Condition is Stable. Discharge Instructions: Elastic Bandage and RICE, Ankle Sprain, Foot Contusion, Foot Sprain. Forms are Medication Reconciliation Form, Thank You Letter, Antibiotic Education, Prescription Opioid Use. Follow up: Private Physician; When: 1 - 2 days; Reason: Recheck today's complaints, Continuance of care, Re-evaluation by your physician. Follow up: Ovidio Carrera; When: 1 - 2 days; Reason: Further diagnostic work-up, Recheck today's complaints, Continuance of care. Follow up: Emergency Department; When: As needed; Reason: Fever > 102 F, If symptoms return, Trouble breathing, Worsening of condition. Problem is new. Symptoms are unchanged. rh1
--- NOTE | 2018-02-17 16:35 | RAD REPORT ---
EXAM DESCRIPTION: RAD - Ankle Right 3 View - 02/17/2018 3:51 pm CLINICAL HISTORY: Ankle pain following trauma COMPARISON: None. FINDINGS: No fracture, dislocation or periosteal reaction. No joint effusion seen. No joint space na rrowing. No soft tissue abnormality. IMPRESSION: Negative right ankle
--- NOTE | 2018-02-17 16:36 | RAD REPORT ---
EXAM DESCRIPTION: RAD - Foot Right 3 View - 02/17/2018 3:51 pm CLINICAL HISTORY: Foot and ankle pain following twisting injury COMPARISON: None. FINDINGS: No fracture, dislocation or periosteal reaction. No air or foreign body in the soft tissues. IMPRESSION: Negative right foot examination.
[2018-02-17 17:01] LABS: Urine Blood NEGATIVE (NEG); Urine Glucose TRACE (NEG); Urine Protein 1+ (NEG)
== END 2018-02-17 17:00 | disposition home or self-care (01) ==
LOC: ER 15:09
DX: S93.401A Sprain of unspecified ligament of right ankle, initial encounter (principal); X50.1XXA Overexertion from prolonged static or awkward postures, initial encounter; Y93.89 Activity, other specified; Y92.013 Bedroom of single-family (private) house as the place of occurrence of the external cause; S90.31XA Contusion of right foot, initial encounter; I10 Essential (primary) hypertension
CPT/HCPCS: 81003; 81025; 99284